=== PATIENT | female | born 1995 | race African-American/Black ===

== ENCOUNTER 2023-10-27 22:21 | Emergency (ER) | payer OTHER, SELFPAY ==
[2023-10-27 22:24] VITALS: BP 140/101
[2023-10-27 22:42] LABS: % Basophils 0.3 % (0-2); % Immature Granulocytes 0.3 % (0-0.5); % Lymphocytes 26.9 % (20.5-51.1); % Monocytes 5.6 % (1.7-9.3); % Neutrophils 63.9 % (42.2-75.2); Absolute Eosinophils 0.4 10^3/uL (0-0.7); Absolute Lymphocytes 3.6 10^3/uL (1.2-3.4); Absolute Monocytes 0.8 10^3/uL (0.1-0.6); Absolute Neutrophils 8.6 10^3/uL (1.4-6.5); Hematocrit 34.6 % (37.0-47.0); Mean Corp Hgb Conc. 34.7 g/dL (33.0-37.0); Mean Corpuscular Volume 80.8 fL (81.0-99.0); Mean Platelet Volume 11.1 fL (7.4-10.4); Nucleated Red Blood Cells % 0 %; Platelet Count 202 10^3/uL (130-400); Red Blood Cell Count 4.28 10^6/uL (4.20-5.40); Red Cell Dist. Width 13.3 % (11.5-14.5); White Blood Cell Count 13.4 10^3/uL (4.8-10.8)
[2023-10-27 22:45] LABS: Urine Albumin Trace (Neg - Trace); Urine Bilirubin Negative (Negative); Urine Character Clear (Clear); Urine Glucose Negative (Negative); Urine Ketone Trace (Negative); Urine Leukocyte 1+ (Negative); Urine Nitrite Negative (Negative); Urine Occult Blood 4+ (Negative); Urine Specific Gravity 1.015 (<1.030); Urine Urobilinogen Negative (Neg - 1+)
[2023-10-27 22:46] LABS: Urine Color Pink
[2023-10-27 22:52] LABS: Urine Red Blood Cell >100 /HPF (0-2); Urine Squamous Cell 0-2 /LPF (Few)
[2023-10-27 23:10] LABS: ALT (SGPT) 16 U/L (0-35); AST (SGOT) 27 U/L (14-36); Albumin 4.1 g/dl (3.5-5.0); Alkaline Phosphatase 83 U/L (38-126); Blood Urea Nitrogen 17 mg/dl (7-17); Calcium 8.9 mg/dl (8.4-10.2); Carbon Dioxide 24 mmol/L (22-30); Chloride 107 mmol/L (98-107); Glucose 112 mg/dl (70-99); Lipase 72 U/L (23-300); Potassium 4.1 mmol/L (3.5-5.1); Sodium 137 mmol/L (135-145); Total Bilirubin 0.3 mg/dl (0.2-1.3); Total Protein 7.1 g/dl (6.3-8.2); eGFR > 60.00
[2023-10-27 23:14] LABS: HCG, Serum Qualitative Screen Negative
--- NOTE | 2023-10-28 01:46 | ED.GENMED ---
History of Present Illness
<JUAN F Cook - Last Filed: 10/28/23 01:57>
General
Chief Complaint: Abdominal Symptoms
Source: patient
Exam Limitations: none
Time Seen by Provider: 10/28/23 01:29
Nursing documentation reviewed up to this point in time: agreed with
Travel History
Have you had any contact with someone who has COVID-19?: No
Do you have any symptoms of coronavirus? Fever > 100 degrees, chills, cough, shortness of breath, sore throat, loss of taste or smell, muscle aches, or headache?: No
History of Present Illness
History of Present Illness:
patient is a 28 y/o female presenting with abdominal pain x 1 day. Patient states the pain is located on her left lower ribs and its a sharp pain that radiates to her back. Patient admits to nausea with no vomiting that went away with eating.
Patient admits to chest pain that she describes as chest tightness that started 1 day ago. Patient admits that she was treated for a yeast infection with Diflucan that was ended 2 days ago. patient admits that she feels like she doesn't completely
empty her bladder when she urinates. Patient admits to bloating for multiple days that she associated with start of menses. Patient admits to heartburn that has been occurring for multiple days. Patient admits that she has been having right calf
pain x multiple days that she describes as tightness of her LE muscle. Patient denies V/D/C. fever, chills, GIBSON, blood in stool. Patient admits menses onset was 1 day ago. Patient denies alcohol or tobacco in the last 48 hrs.
Review of Systems
<JUAN F Cook - Last Filed: 10/28/23 01:57>
Review of Systems
All Other Systems: Not applicable
Constitutional: Reports no symptoms
EENT: Reports no symptoms
Respiratory: Reports trouble breathing
Cardiac: Reports chest pain
ABD/GI: Reports abdominal pain and nausea
: Reports dysuria and difficulty voiding
Musculoskeletal: Reports no symptoms
Skin: Reports no symptoms
Neurological: Reports no symptoms
Endocrine: Reports no symptoms
Hematologic/Lymphatic: Reports no symptoms
Psychiatric: Reports no symptoms
Phy Exam
<ST JoeyCO - Last Filed: 10/28/23 01:57>
General Physical Exam
General Presentation: well appearing and no apparent distress
General Skin: warm and dry
General Habitus: normal
General Mental: alert
General Hydration: appears well hydrated
ENT Exam
ENT Exam: EOMI, pharynx normal, neck supple and normocephalic
Eye Exam
Eye Exam: PERRL, cornea clear and conjunctiva normal
Cardiovascular Exam
Cardiovascular Exam: regular rate/rhythm, no edema, no murmur and normal peripheral pulses
Pulmonary Exam
Pulmonary Exam: lungs clear, no respiratory distress, no rales, no crackles, no rhonchi, no stridor, no wheezing and no cough
Gastrointestinal Exam
Gastrointestinal Exam: normal bowel sounds, non tender, soft, no organomegaly, no pulsatile mass and non distended
Neurological Exam
Neurological Exam: alert, oriented x3, no motor deficits and speech normal
Musculoskeletal Exam
Musculoskeletal Exam: full ROM and no edema
Skin Exam
Skin Exam: normal color, warm/dry, no rash and no petechia
Psychiatric Exam
Psychiatric Exam: normal mood/affect
Course
<ST JoeyCO - Last Filed: 10/28/23 01:57>
Orders/Labs/Results
Orders:
Orders
10/27/23 22:29
Electrocardiogram (*1) Urgent
Reason for Study: Abdominal Pain
EKG- Treatment ONCE
Test Result ONCE
10/27/23 22:36
Complete Blood Count/With Diff Urgent
Comprehensive Metabolic Panel Urgent
HCG, Serum Qualitative Screen Urgent
Lipase Urgent
Urinalysis Reflex To Culture Urgent
Date Specimen was Collected: 10/27/23
Time Specimen was Collected: 22:29
Urine Microscopic Reflex Cult Urgent
Urine Culture Urgent
MECHELLE Source: U
Specimen Description:
Date Specimen was Collected: 10/27/23
Time Specimen was Collected: 22:29
10/28/23 02:30
US Periph Venous LOWER Ext RT Urgent
Comment:
Reason For Exam: PAIN R post calf
10/28/23 03:29
D-Dimer Urgent
Comment: calf pain
10/28/23 04:41
CT Abd/pel Without Iv Or Oral Urgent
Comment:
Reason For Exam: acute Left flank pain
CT Chest Pe Study Urgent
Comment:
Reason For Exam: L sided CP, elevated d-dimer
Abnormal Lab Results
10/27/23 10/28/23
22:36 03:29
WBC 13.4 H 10^3/uL
(4.8-10.8)
Hct 34.6 L %
(37.0-47.0)
MCV 80.8 L fL
(81.0-99.0)
MPV 11.1 H fL
(7.4-10.4)
Absolute Neuts (auto) 8.6 H 10^3/uL
(1.4-6.5)
Absolute Lymphs (auto) 3.6 H 10^3/uL
(1.2-3.4)
Absolute Monos (auto) 0.8 H 10^3/uL
(0.1-0.6)
D-Dimer 0.62 H ug/mlFEU
(0.00-0.50)
Glucose 112 H mg/dl
(70-99)
Urine Ketones Trace A
(Negative)
Ur Occult Blood Reflex 4+ A
(Negative)
Leukocyte Esterase Rfl 1+ A
(Negative)
Urine RBC >100 A /HPF
(0-2)
10/27/23 22:36
10/27/23 22:36
Vital Signs
Initial and Last Documented VS:
Initial Vital Signs
Temp Pulse Resp BP Pulse Ox
97.9 F 91 20 140/101 97
10/27/23 22:24 10/27/23 22:24 10/27/23 22:24 10/27/23 22:24 10/27/23 22:24
Last Documented Vital Signs
Temp Pulse Resp BP Pulse Ox
97.9 F 91 20 102/67 97
10/27/23 22:24 10/27/23 22:24 10/27/23 22:24 10/28/23 05:00 10/28/23 05:00
<Rebeka Oh, DO - Last Filed: 10/28/23 06:18>
Orders/Labs/Results
Orders:
Orders
10/27/23 22:29
Electrocardiogram (*1) Urgent
Reason for Study: Abdominal Pain
EKG- Treatment ONCE
Test Result ONCE
10/27/23 22:36
Complete Blood Count/With Diff Urgent
Comprehensive Metabolic Panel Urgent
HCG, Serum Qualitative Screen Urgent
Lipase Urgent
Urinalysis Reflex To Culture Urgent
Date Specimen was Collected: 10/27/23
Time Specimen was Collected: 22:29
Urine Microscopic Reflex Cult Urgent
Urine Culture Urgent
MECHELLE Source: U
Specimen Description:
Date Specimen was Collected: 10/27/23
Time Specimen was Collected: 22:29
10/28/23 02:30
US Periph Venous LOWER Ext RT Urgent
Comment:
Reason For Exam: PAIN R post calf
10/28/23 03:29
D-Dimer Urgent
Comment: calf pain
10/28/23 04:41
CT Abd/pel Without Iv Or Oral Urgent
Comment:
Reason For Exam: acute Left flank pain
CT Chest Pe Study Urgent
Comment:
Reason For Exam: L sided CP, elevated d-dimer
Abnormal Lab Results
10/27/23 10/28/23
22:36 03:29
WBC 13.4 H 10^3/uL
(4.8-10.8)
Hct 34.6 L %
(37.0-47.0)
MCV 80.8 L fL
(81.0-99.0)
MPV 11.1 H fL
(7.4-10.4)
Absolute Neuts (auto) 8.6 H 10^3/uL
(1.4-6.5)
Absolute Lymphs (auto) 3.6 H 10^3/uL
(1.2-3.4)
Absolute Monos (auto) 0.8 H 10^3/uL
(0.1-0.6)
D-Dimer 0.62 H ug/mlFEU
(0.00-0.50)
Glucose 112 H mg/dl
(70-99)
Urine Ketones Trace A
(Negative)
Ur Occult Blood Reflex 4+ A
(Negative)
Leukocyte Esterase Rfl 1+ A
(Negative)
Urine RBC >100 A /HPF
(0-2)
10/27/23 22:36
10/27/23 22:36
Vital Signs
Initial and Last Documented VS:
Initial Vital Signs
Temp Pulse Resp BP Pulse Ox
97.9 F 91 20 140/101 97
10/27/23 22:24 10/27/23 22:24 10/27/23 22:24 10/27/23 22:24 10/27/23 22:24
Last Documented Vital Signs
Temp Pulse Resp BP Pulse Ox
97.9 F 91 20 102/67 97
10/27/23 22:24 10/27/23 22:24 10/27/23 22:24 10/28/23 05:00 10/28/23 05:00
<JUAN F Cook - Last Filed: 10/28/23 01:57>
MDM/Problems Addressed
Differential Diagnosis Includes:
PUD
pyelonephritis
PE
MDM/Problems Addressed:
abdominal pain
<JUAN F Cook - Last Filed: 10/28/23 01:57>
*Critical Care Note
Total Time (30-74mins, 75-104mins- exclusive of procedures): Not Applicable
<Rebeak Oh DO - Last Filed: 10/28/23 06:18>
*Radiology
Radiology exam reviewed: radiology read reviewed
*Pulse Oximetry
Patient hypoxic: no
*EKG
Interpreted by ED Provider?: Yes
Interpretation: normal
Comparison EKG: no changes
Rate: normal
Rhythm: sinus
[place]: normal axis
Interval: normal interval
QRS Pattern: normal QRS
Ischemia: no ischemia
ED Attending Note
<JUAN F Cook - Last Filed: 10/28/23 01:57>
-
Portions of this chart may have been created with voice recognition software.� Occasional wrong word or��sound alike� substitutions may have occurred due to the inherent limitations of voice recognition software.
<Rebeka Oh DO - Last Filed: 10/28/23 06:18>
ED Attending Note
Patient seen and examined by attending physician: Yes
I performed the substantive portion of visit, reviewed & personally made and approve the management plan that is documented in note by myself or SRINATH.: Yes
I performed a history and physical exam of patient and discussed management with resident, I reviewed resident's note and agree with documented findings and plan of care.: Yes
ED Attending Note:
This is a 28-year-old female who has no significant past medical history who complains of left upper quadrant to left flank pain that began yesterday, somewhat constant with intermittent sharp pain. Left upper quadrant pain radiates to her left
chest associated with some heartburn, nausea but no vomiting. She has had a cough over the past several days, intermittent and dry but no fever, no nasal congestion, no sore throat.
Heartburn and substernal chest pain temporarily improves after eating and drinking. She is also noted several day history of right posterior calf pain and has had similar right posterior calf pain off and on with previous ED visit May 2023
with similar complaints of left-sided chest pain, right posterior calf pain. At that time she had just finished a course of prednisone and was noted to have elevated white blood cell count, normal D-dimer.
CT of the chest/PE study was unremarkable.
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
She currently has her normal menstrual period. Denies risk of .
Had been maintained on Depo-Provera but last injection was February 2023.
More recently she was treated for a vaginal yeast infection with 3 doses of Diflucan taken once every 72 hours for 3 doses. This was prescribed by her PCP. Yeast infection symptoms have resolved but with initiation of Diflucan 2 days ago she had
very mild UTI symptoms with a sense of not emptying her bladder fully but no significant dysuria, no definitive hematuria but currently has her menstrual period. No urinary frequency.
No recent travel.
Lifelong non-smoker.
No personal nor family history of thromboembolism.
GENERAL: This is a 28-year-old female appears her stated age, bright and alert, pleasant, appears in no acute distress. is accompanying.
EYE: anicteric
NECK: Supple, nontender, no meningismus, no significant adenopathy.
ENT: oral mucosa is moist. No rhinorrhea.
CARDIAC: Regular rate and rhythm. no murmur. No rub.
LUNGS: Clear breath sounds bilaterally, no acute respiratory distress, no wheezes/rales/rhonchi. Mild tenderness left anterior to lateral distal costal margin. Palpation seems to exactly reproduce patient's pain complaint. No crepitus nor
palpable bony abnormality.
ABDOMEN: Rotund, soft, nondistended, mild tenderness of patient left lateral flank and left posterior flank with mild left CVA tenderness with percussion, no r/g, normoactive BS. No rash.
NEUROLOGICAL: Alert and oriented x3, no focal neuro deficits. Gait is aviles and steady.
SKIN: Warm and dry, normal color, skin intact. No rash.
MUSCULOSKELETAL: No C/C/E. peripheral pulses are full and equal b/l. Mild tenderness right posterior calf without palpable cords nor erythema, no soft tissue swelling nor edema.
PSYCH: Normal and appropriate interaction.
Concern for musculoskeletal flank pain, renal colic with left ureteric stone, pyelonephritis, GERD, pleurisy, pneumonia. PE is less likely, no risk factors for thromboembolism however patient has been complaining of some right calf pain thus will
check a D-dimer as well as ultrasound right lower extremity.
EKG is normal, unchanged from previous. Nothing to suggest pericarditis nor ACS.
Labs thus far reveal mildly elevated white blood cell count of 13.4, improved from previous in May at 20.2.
Chemistries are unremarkable.
Urinalysis shows plus for blood with microscopic showing greater than 100 RBCs. WBCs obscured by RBCs but no evidence of bacteria on microscopic. Hematuria could certainly be contaminant from from menses but must also consider ureteral stone.
10/28/2023 0608 AM
Ultrasound right leg is negative for DVT, no evidence of phlebitis no Levine's cyst.
D-dimer mildly positive thus CT of the chest/PE study obtained which is negative for PE, bibasilar atelectasis without consolidation.
CT of the abdomen pelvis is unremarkable as well. Status postcholecystectomy. No colitis, no bowel obstruction, no free air, no obstructive uropathy.
I suspect right upper quadrant to right flank pain is musculoskeletal in nature. Patient reports allergy to aspirin causing a rash and thus she avoids NSAIDs. Recommend Tylenol as needed for pain. She can also trial [id number] topical NSAID
versus topical lidocaine patch. Will add PPI for GI protection, potential GERD.
Recommend other supportive measures, warm compresses, rest, gentle stretching.
Prompt follow-up with PCP for recheck.
Discharge Plan
Departure
Patient Disposition: Home (Routine Discharge)
Date of Disposition: 10/28/23
Time of Disposition: 06:10
Patient with high blood pressure during this ER visit?: No
Condition: Good
Discharge Problem:
musculoskeletal left flank pain, Gastroesophageal reflux disease
Instructions: Flank Pain (DC), Acid reflux and gastroesophageal reflux disease in adults
Prescriptions:
New
pantoprazole [Protonix] 40 mg tablet,delayed release (DR/EC)
40 mg PO DAILY Qty: 30 0RF
Discontinued
amoxicillin-pot clavulanate 875-125 mg tablet
1 tab PO BID 10 Days Qty: 20 0RF
Referrals:
UNKNOWN - PT DOES,NOT KNOW [Unknown Provider] - Call in 1-3 days for appt
Interventions
Interventions:
*Risk Screen - Suicide Last Done: 10/28/23 03:45
*General Assessment Last Done: 10/28/23 03:45
*Neglect/Abuse Screening Last Done: 10/28/23 03:45
ED- Fall Risk Assessment Last Done: 10/28/23 03:45
*ED COVID-19 Vaccine History Last Done: 10/27/23 22:26
JW-Kupfrw-Ghjobkwehu Assessment Last Done: 10/28/23 03:45
Discharge Date and Time
Print Language: JAPANESE
[2023-10-28 03:44] VITALS: BP 130/94
[2023-10-28 03:57] LABS: D-Dimer 0.62 ug/mlFEU (0.00-0.50)
[2023-10-28 04:00] VITALS: BP 112/78
[2023-10-28 05:00] VITALS: BP 102/67
[2023-10-28 06:00] VITALS: BP 122/79
== END 2023-10-28 06:38 | disposition home or self-care (01) ==
LOC: EMR 22:21
PROVIDERS: Emergency Medicine; EMERGENCY PHYSICIAN Emergency Medicine; FAMILY PHYSICIAN Nurse Practitioner
DX: R10.9 Unspecified abdominal pain (principal); K21.9 Gastro-esophageal reflux disease without esophagitis; M79.661 Pain in right lower leg; Z88.6 Allergy status to analgesic agent
CPT/HCPCS: 99285; 71275; 74176; 80053; 81003; 81015; 83690; 84703; 85025; 85379; 87086; 93005; 93971; Q9967

== ENCOUNTER → 2023-12-19 08:21 | Outpatient (REF) | payer OTHER, SELFPAY | LOC: OHS 08:21 | PROVIDERS: ATTENDING PHYSICIAN Nurse Practitioner Family | DX: Z13.9 Encounter for screening, unspecified (principal) | CPT/HCPCS: 71046 ==

== ENCOUNTER 2024-04-27 10:45 | Emergency (ER) | payer OTHER, SELFPAY ==
[2024-04-27 10:57] VITALS: BP 134/92
[2024-04-27 11:38] LABS: % Basophils 0.2 % (0-2); % Eosinophils 2.3 % (0-6); % Immature Granulocytes 0.2 % (0-0.5); % Lymphocytes 26.8 % (20.5-51.1); % Monocytes 6.2 % (1.7-9.3); % Neutrophils 64.3 % (42.2-75.2); Absolute Eosinophils 0.2 10^3/uL (0-0.7); Absolute Lymphocytes 2.6 10^3/uL (1.2-3.4); Absolute Monocytes 0.6 10^3/uL (0.1-0.6); Absolute Neutrophils 6.1 10^3/uL (1.4-6.5); Hematocrit 34.2 % (37.0-47.0); Hemoglobin 11.6 g/dL (12.0-16.0); Mean Corp Hgb Conc. 33.9 g/dL (33.0-37.0); Mean Corpuscular Hgb 27.8 pg (27.0-31.0); Mean Platelet Volume 11.3 fL (7.4-10.4); Nucleated Red Blood Cells % 0 %; Platelet Count 198 10^3/uL (130-400); Red Blood Cell Count 4.17 10^6/uL (4.20-5.40); Red Cell Dist. Width 14.1 % (11.5-14.5); White Blood Cell Count 9.5 10^3/uL (4.8-10.8)
[2024-04-27 11:41] VITALS: BMI 42.9
--- NOTE | 2024-04-27 11:41 | ED.GENMED ---
History of Present Illness
General
Chief Complaint: Heart Rate Problem
Time Seen by Provider: 04/27/24 11:23
History of Present Illness
History of Present Illness:
Patient is a 28-year-old woman with no past medical history presenting to the emergency department with palpitations. 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
lightheadedness and chest pain. That resolved. She is currently back to feeling normal. Denies any nausea vomiting or diaphoresis. She has had the symptoms a few years ago she presented to another hospital. She never had a Holter monitor. She
denies any chest pain. No exertional chest pain. No family history of early cardiac disease or sudden cardiac. Patient denies any fevers chills. No URI symptoms. No leg swelling hemoptysis recent travel malignancy or OCP use. At this time
patient has no complaints.
Phy Exam
Physical Exam
Physical Exam:
GENERAL: in no acute distress
HEENT: normocephalic, extraocular movements intact, moist oral mucosa
NECK: normal inspection
RESPIRATORY: no respiratory distress, clear to auscultation bilaterally
CARDIOVASCULAR: regular rate and rhythm
ABDOMEN/: soft, non-distended, non-tender to palpation, no rebound or guarding
EXTREMITIES: non-tender, no edema/swelling
NEUROLOGIC: awake and alert, moves all extremities
SKIN: warm
Course
Orders/Labs/Results
Orders:
Orders
04/27/24 10:46
Electrocardiogram (*1) Urgent
Reason for Study: Palpitations
EKG- Treatment ONCE
04/27/24 11:22
Electrocardiogram (*1) Urgent
Reason for Study: Chest Pain
Cardiac Monitoring- Treatment ONCE
EKG- Treatment ONCE
IV Insert/Care/Rem.- Treatment PRN
O2 Therapy [RESP] Urgent
Titrate/Wean O2 to maintain O2 sat greater than (%): 90
Special Instructions: Maintain sats >/=90%
Pulse Ox/spot Check [RESP] Urgent
Quantity: 1
Special Instructions: ON ROOM AIR
04/27/24 11:23
Test Result ONCE
04/27/24 11:28
Comprehensive Metabolic Panel Urgent
HCG, Serum Qualitative Screen Urgent
Magnesium Urgent
Thyroid profile [TSH Reflex To Free T4] Urgent
04/27/24 11:29
Complete Blood Count/With Diff Urgent
04/27/24 12:08
CR Chest - 2 Views Urgent
Comment:
Reason For Exam: palpitation
Abnormal Lab Results
04/27/24
11:29
RBC 4.17 L 10^6/uL
(4.20-5.40)
Hgb 11.6 L g/dL
(12.0-16.0)
Hct 34.2 L %
(37.0-47.0)
MPV 11.3 H fL
(7.4-10.4)
04/27/24 11:29
04/27/24 11:28
Vital Signs
Initial and Last Documented VS:
Initial Vital Signs
Temp Pulse Resp BP Pulse Ox
98.1 F 73 18 134/92 100
04/27/24 10:57 04/27/24 10:57 04/27/24 10:57 04/27/24 10:57 04/27/24 10:57
Last Documented Vital Signs
Temp Pulse Resp BP Pulse Ox
98.1 F 74 20 134/92 99
04/27/24 10:57 04/27/24 12:00 04/27/24 12:00 04/27/24 10:57 04/27/24 12:00
MDM/Problems Addressed
Differential Diagnosis Includes:
Patient is a 28-year-old woman presenting to the emergency department with palpitations that have now resolved. Vital signs are unremarkable and exam here is nonfocal. Palpitations could be related to metabolic derangement versus arrhythmia versus
. History and exam not consistent with ACS. Will check blood work including magnesium and thyroid cascade. If everything is normal we will discharge with outpatient follow-up.
*Critical Care Note
Total Time (30-74mins, 75-104mins- exclusive of procedures): Not Applicable
Update Note
Update Note:
On reevaluation patient resting comfortably. She remains to be asymptomatic. Blood work reassuring. Will discharge this time with PCP follow-up for Holter monitor.
ED Attending Note
-
Portions of this chart may have been created with voice recognition software.� Occasional wrong word or��sound alike� substitutions may have occurred due to the inherent limitations of voice recognition software.
Discharge Plan
Departure
Patient Disposition: Home (Routine Discharge)
Date of Disposition: 04/27/24
Time of Disposition: 13:01
Patient with high blood pressure during this ER visit?: No
Discharge Problem:
Palpitation
Instructions: Palpitations (DC)
Prescriptions:
No Action
pantoprazole [Protonix] 40 mg tablet,delayed release (DR/EC)
40 mg PO DAILY Qty: 30 0RF
Referrals:
Jennifer Hernández CRNP [Family Provider] -
Activity Restrictions/Additional Instructions:
You were seen in the Emergency Department today for palpitations. While you were here we performed blood work, which was reassuring.
We would like for you to follow up with your primary care physician for further evaluation. If you experience fever, worsening of your symptoms, or develop any other new or concerning symptoms, please return to the Emergency Department immediately.
Please see the attached sheet for additional information.
Interventions
Interventions:
*Risk Screen - Suicide Last Done: 04/27/24 11:41
*General Assessment Last Done: 04/27/24 11:41
*Neglect/Abuse Screening Last Done: 04/27/24 11:41
ED- Fall Risk Assessment Last Done: 04/27/24 11:41
*ED COVID-19 Vaccine History Last Done: 04/27/24 11:41
ED- Cardiac Assessment Last Done: 04/27/24 11:41
ED- Pulmonary Assessment Last Done: 04/27/24 11:41
Discharge Date and Time
Print Language: VENEZUELAN
[2024-04-27 11:47] LABS: HCG, Serum Qualitative Screen Negative
[2024-04-27 11:59] LABS: ALT (SGPT) 19 U/L (0-35); AST (SGOT) 18 U/L (14-36); Albumin 4.3 g/dl (3.5-5.0); Alkaline Phosphatase 68 U/L (38-126); Blood Urea Nitrogen 15 mg/dl (7-17); Carbon Dioxide 25 mmol/L (22-30); Chloride 104 mmol/L (98-107); Estimated Creatinine Clearance > 125 ml/min; Glucose 95 mg/dl (70-99); Magnesium 1.8 mg/dl (1.6-2.3); Sodium 140 mmol/L (135-145); Total Bilirubin 0.4 mg/dl (0.2-1.3); Total Protein 7.2 g/dl (6.3-8.2); eGFR > 60.00
[2024-04-27 12:29] LABS: TSH Reflex To Free T4 0.57 uIU/ml (0.47-4.68)
== END 2024-04-27 13:20 | disposition home or self-care (01) ==
LOC: EMR 10:45
PROVIDERS: EMERGENCY PHYSICIAN Student in an Organized Health Care Education/Training Program; FAMILY PHYSICIAN Nurse Practitioner
DX: R00.2 Palpitations (principal); R42 Dizziness and giddiness; R07.9 Chest pain, unspecified; Y93.89 Activity, other specified; Y92.238 Other place in hospital as the place of occurrence of the external cause; Y99.0 Civilian activity done for income or pay; Z88.5 Allergy status to narcotic agent; Z88.8 Allergy status to other drugs, medicaments and biological substances; Z88.6 Allergy status to analgesic agent; Z91.040 Latex allergy status
CPT/HCPCS: 99284; 94760; 71046; 80053; 83735; 84443; 84703; 85025; 93005

== ENCOUNTER 2024-05-25 23:42 | Emergency (ER) | payer OTHER, SELFPAY ==
[2024-05-25 23:47] VITALS: BP 159/103
--- NOTE | 2024-05-26 01:46 | ED.GENMED ---
History of Present Illness
<JUAN F De La O - Last Filed: 05/26/24 05:56>
General
Chief Complaint: Extremity Pain (non-traumatic)
Source: patient
Time Seen by Provider: 05/26/24 01:46
Nursing documentation reviewed up to this point in time: agreed with
History of Present Illness
History of Present Illness:
A 28-year-old female with a past medical history of asthma, IBS, presents to the emergency department for right lower extremity calf pain. She states that the pain started this evening and woke her from sleep around 9 PM. She states the pain
initially began in the right lower calf, but slowly began radiating up the lateral aspect of her leg into her right lower back. She incidentally admits to headache which is mild in nature which began an unknown duration of time prior to the leg
pain. She denies chest pain, palpitations, shortness of breath, nausea, vomiting.
She denies any prior episodes . She denies any long distance travel. She is a non-smoker and only drinks socially. She denies any OCP use.
Past History
<JUAN F De La O - Last Filed: 05/26/24 05:56>
Past History
ED Past Medical History: Asthma
Social History
Tobacco: Non-smoker
Alcohol: Occasional
Drug: None
Personal:
Living: with family
Employment: Employed
Review of Systems
<JUAN F De La O - Last Filed: 05/26/24 05:56>
Review of Systems
Allergies reviewed?: Yes
Phy Exam
<JUAN F De La O - Last Filed: 05/26/24 05:56>
General Physical Exam
General Presentation: well appearing and no apparent distress
General age: appears stated age
General Skin: warm and dry
General Habitus: normal and obese
General Mental: alert
Cardiovascular Exam
Cardiovascular Exam: regular rate/rhythm, no edema, no gallop, no murmur and normal peripheral pulses
Pulmonary Exam
Pulmonary Exam: lungs clear, no respiratory distress, no rales, no crackles, no rhonchi, no wheezing and no cough
Neurological Exam
Neurological Exam: alert and oriented x3
Musculoskeletal Exam
Musculoskeletal Exam: full ROM, neuro vasc intact and other (Right posterior calf mild tenderness to palpation. Right posterior thigh is non-TTP. Right Achilles tendon is non-TTP. Right lower calf diameter of 41 cm. Left lower calf diameter of
43 cm. Sensation to light touch intact bilaterally.)
Skin Exam
Skin Exam: normal color, warm/dry and no rash
Psychiatric Exam
Psychiatric Exam: normal mood/affect
Scores
<Dudley Knox, [facility] - Last Filed: 05/26/24 05:56>
PE Low Risk Score
Hemodynamically unstable?: No
Thrombolysis or embolectomy needed?: No
Active bleeding or high risk for bleeding?: No
>24hrs on supplemental O2 required to maintain SaO2 >90%?: No
PE diagnosed while on anticoagulation?: No
Severe pain needing IV medication required for >24 hours?: No
Medical or social reason for admission >24 hours?: No
Creatinine clearance < 30 mL/min by Cockcroft-Gault?: No
Severe liver impairment?: No
?: No
Documented hx of heparin-induced thrombocytopenia (HIT)?: No
High risk features on CT (or pulmonary angiogram/MRA)(confirm with echo if features seen)?: No
High risk features on echo, if performed?: No
High risk features on laboratory testing?: No
High risk features on lower extremity US, if performed?: No
High risk features on ECG (confirm with echo if features seen)?: No
Recommendations: Patient is considered low risk
PE Wells Score
Symptoms of DVT: Yes
No alternative diagnosis better explains the illness: No
Tachycardia with pulse > 100: No
Immobilization (>=3 days) or surgery within previous 4 weeks: No
Prior history of DVT or pulmonary embolism: No
Presence of hemoptysis: No
Presence of malignancy: No
Pulmonary Embolism Risk Score: 0
Probability of PE: Pt is low risk
<Eliseo Beckett DO - Last Filed: 05/26/24 03:40>
PE Low Risk Score
Recommendations: Patient is considered low risk
PE Wells Score
Pulmonary Embolism Risk Score: 0
Probability of PE: Pt is low risk
Course
<JUAN F De La O - Last Filed: 05/26/24 05:56>
Orders/Labs/Results
Orders:
Orders
05/26/24 02:10
US Legs, Bilateral [US Periph Venous LOWER Ext Javy] Urgent
Comment:
Reason For Exam: R calf pain radiating up lateral thigh
05/26/24 03:29
Acetaminophen [Tylenol] 1,000 mg PO NOW STA
Cyclobenzaprine HCl [Flexeril] 10 mg PO NOW STA
Vital Signs
Initial and Last Documented VS:
Initial Vital Signs
Temp Pulse Resp BP Pulse Ox
98.2 F 96 20 159/103 98
05/25/24 23:47 05/25/24 23:47 05/25/24 23:47 05/25/24 23:47 05/25/24 23:47
Last Documented Vital Signs
Temp Pulse Resp BP Pulse Ox
98.2 F 83 16 120/77 97
05/25/24 23:47 05/26/24 03:22 05/26/24 03:22 05/26/24 03:22 05/26/24 03:22
<Eliseo Beckett DO - Last Filed: 05/26/24 03:40>
Orders/Labs/Results
Orders:
Orders
05/26/24 02:10
US Legs, Bilateral [US Periph Venous LOWER Ext Javy] Urgent
Comment:
Reason For Exam: R calf pain radiating up lateral thigh
05/26/24 03:29
Acetaminophen [Tylenol] 1,000 mg PO NOW STA
Cyclobenzaprine HCl [Flexeril] 10 mg PO NOW STA
Vital Signs
Initial and Last Documented VS:
Initial Vital Signs
Temp Pulse Resp BP Pulse Ox
98.2 F 96 20 159/103 98
05/25/24 23:47 05/25/24 23:47 05/25/24 23:47 05/25/24 23:47 05/25/24 23:47
Last Documented Vital Signs
Temp Pulse Resp BP Pulse Ox
98.2 F 83 16 120/77 97
05/25/24 23:47 05/26/24 03:22 05/26/24 03:22 05/26/24 03:22 05/26/24 03:22
<JUAN F De La O - Last Filed: 05/26/24 05:56>
MDM/Problems Addressed
Differential Diagnosis Includes:
Deep vein thrombosis, sciatica, arterial thromboembolism
<JUAN F De La O - Last Filed: 05/26/24 05:56>
*Critical Care Note
Total Time (30-74mins, 75-104mins- exclusive of procedures): Not Applicable
<JUAN F De La O - Last Filed: 05/26/24 05:56>
Update Note
Update Note:
05/26/2024 0309 AM: [facility]: Lower extremity ultrasound revealed no deep vein thrombosis. Will notify patient.
ED Attending Note
<JUAN F De La O - Last Filed: 05/26/24 05:56>
-
Portions of this chart may have been created with voice recognition software.� Occasional wrong word or��sound alike� substitutions may have occurred due to the inherent limitations of voice recognition software.
Discharge Plan
Departure
Patient Disposition: Home (Routine Discharge)
Date of Disposition: 05/26/24
Time of Disposition: 03:31
Patient with high blood pressure during this ER visit?: Yes
Condition: Good
Discharge Problem:
Sciatic leg pain
Instructions: Sciatica ED, BLOOD PRESSURE
Prescriptions:
New
cyclobenzaprine 10 mg tablet
10 mg PO BID PRN (Reason: Muscle spasm) Qty: 14 0RF
No Action
pantoprazole [Protonix] 40 mg tablet,delayed release (DR/EC)
40 mg PO DAILY Qty: 30 0RF
Referrals:
Johnie Ware MD [Family Provider] - As needed
Stand Alone Forms: Return to Work
Activity Restrictions/Additional Instructions:
Your prescriptions were sent electronically to the pharmacy that you specified.
It was a pleasure meeting you and taking part in your care. We hope for your continued healing and wellness.
Please read discharge instructions in their entirety. However, they are for general education and may not describe your exact diagnosis at discharge. Information on your ER visit and medical conditions were discussed with you along with appropriate
follow up information...
If indicated, please take your medications as instructed and indicated on discharge paperwork.
Please schedule a follow up appointment as directed. Call to schedule an appointment
Please return to the emergency department with ANY change in, persisting, or worsening of symptoms. If any of your symptoms do not improve, or persist, or become more severe within 6-12 hours, please return to the emergency department for further
care.
Please return to the emergency department if you develop a headache, neck pain/stiffness, fever greater than 100.4F, chest pain, shortness of breath, persistent nausea, vomiting, slurred speech, difficulty walking, numbness/tingling, weakness, signs
of infection or any other symptoms that are worrisome to you.
If you have any questions or concerns please do not hesitate to call the Hospital at or E-mail me directly at [email or web address]
Interventions
Interventions:
*Risk Screen - Suicide Last Done: 05/25/24 23:51
*General Assessment Last Done: 05/25/24 23:51
*Neglect/Abuse Screening Last Done: 05/26/24 04:02
ED- Fall Risk Assessment Last Done: 05/26/24 04:02
*ED COVID-19 Vaccine History Last Done: 05/25/24 23:51
*Nursing Disposition Last Done: 05/26/24 04:02
ED-Skin Assessment Last Done: 05/26/24 03:15
ED-Peripheral Vascular Assessment Last Done: 05/26/24 03:14
ED-Musculoskeletal Assessment Last Done: 05/26/24 01:42
Discharge Date and Time
Discharge Date/Time: 05/26/24 04:00
Print Language: MALAY
[2024-05-26 02:24] VITALS: BP 125/84
[2024-05-26 03:22] VITALS: BP 120/77
[2024-05-26] MEDS: FLEXERIL 10 MG PO (03:59)
[2024-05-26] MEDS: TYLENOL 1000 MG PO (03:59)
== END 2024-05-26 04:00 | disposition home or self-care (01) ==
LOC: EMR 23:42
PROVIDERS: EMERGENCY PHYSICIAN Student in an Organized Health Care Education/Training Program; FAMILY PHYSICIAN Family Medicine
DX: M54.30 Sciatica, unspecified side (principal); J45.909 Unspecified asthma, uncomplicated; K58.9 Irritable bowel syndrome, unspecified; R03.0 Elevated blood-pressure reading, without diagnosis of hypertension
CPT/HCPCS: 99284; 93970

== ENCOUNTER 2024-09-10 15:55 | Emergency (ER) | payer OTHER, SELFPAY ==
[2024-09-10 16:03] VITALS: BP 155/99
[2024-09-10 18:55] VITALS: BP 129/89
[2024-09-10 18:58] VITALS: BMI 42.6
[2024-09-10 20:00] VITALS: BP 130/92
--- NOTE | 2024-09-10 20:29 | ED.GENMED ---
History of Present Illness
General
Chief Complaint: Musculo-Skeletal Complaint
Source: patient
Exam Limitations: none
Time Seen by Provider: 09/10/24 18:37
Nursing documentation reviewed up to this point in time: agreed with
History of Present Illness
History of Present Illness:
28 yr old female presents to the ER complaining of right shoulder pain. She reports on September 17 she fell and injured her right shoulder. She had x-rays urgent care which were negative. She did see orthopedics this week and she has an MRI
ordered on Friday. She presents to the ER because of continued pain. She is allergic to aspirin and ibuprofen drugs and only can take Tylenol and complains of pain. She does have swelling. She does report she has good range of motion but after
she moves her arm she has even more discomfort.
Past History
Past History
ED Past Medical History: Asthma
Social History
Tobacco: Non-smoker
Alcohol: Occasional
Drug: None
Personal:
Living: with family
Employment: Employed
Review of Systems
Review of Systems
Allergies reviewed?: Yes
All Other Systems: ROS reviewed and negative except as documented in HPI and ROS
Constitutional: Reports no symptoms
Musculoskeletal: Reports other (right shoulder pain )
Skin: Reports no symptoms
Neurological: Reports no symptoms
Psychiatric: Reports no symptoms
Phy Exam
General Physical Exam
General Presentation: no apparent distress
General age: appears stated age
General Skin: warm and dry
General Habitus: normal
General Mental: alert
General Hydration: appears well hydrated
Neurological Exam
Neurological Exam: alert
Course
Orders/Labs/Results
Orders:
Orders
09/10/24 16:06
Shoulder, Right, Trauma [CR Shoulder, Trauma - Right] Urgent
Comment:
Reason For Exam: fall 1 month ago, pain
09/10/24 20:29
Acetaminophen [Tylenol] 1,000 mg PO NOW STA
Lidocaine [Lidocaine 4% Patch] 1 patch TOPICAL NOW STA
Apply Lidocaine patch(s) to:: right shoulder
diazePAM [Valium Injection] 5 mg IM NOW STA
09/10/24 20:57
Venous Doppler Upr Ext Right [US Periph Venous UPPER Ext RT] Urgent
Comment:
Reason For Exam: swelling /pain injury one month ago
Vital Signs
Initial and Last Documented VS:
Initial Vital Signs
Temp Pulse Resp BP Pulse Ox
97.8 F 91 16 155/99 97
09/10/24 16:03 09/10/24 16:03 09/10/24 16:03 09/10/24 16:03 09/10/24 16:03
Last Documented Vital Signs
Temp Pulse Resp BP Pulse Ox
97.8 F 91 16 130/92 100
09/10/24 16:03 09/10/24 16:03 09/10/24 16:03 09/10/24 20:00 09/10/24 20:54
MDM/Problems Addressed
MDM/Problems Addressed:
As documented patient is a 28-year-old female who fell onto her right shoulder about a month ago saw orthopedics had negative x-rays however has had persistent pain and has an MRI scheduled this Friday she came in because of pain. On exam she has
mild swelling however ultrasound negative no acute findings on x-ray. She has strong pulses and normal distal sensation no fevers or redness no evidence infection. .
She is on muscle relaxer cyclobenzaprine at home ( not working). Patient did not want to try narcotic and she is allergic to aspirin/NSAIDs. Did give patient Valium along with the lidocaine patch and Tylenol and she is feeling much better we will
have patient stop cyclobenzaprine and will start Valium along with lidocaine patch. She has to follow-up for her MRI on Friday and follow-up with orthopedics
*Radiology
Radiology exam reviewed: radiology read reviewed
*Pulse Oximetry
Patient hypoxic: no
*Critical Care Note
Total Time (30-74mins, 75-104mins- exclusive of procedures): Not Applicable
ED Attending Note
-
Portions of this chart may have been created with voice recognition software.� Occasional wrong word or��sound alike� substitutions may have occurred due to the inherent limitations of voice recognition software.
Discharge Plan
Departure
Patient Disposition: Home (Routine Discharge)
Date of Disposition: 09/10/24
Time of Disposition: 22:50
Patient with high blood pressure during this ER visit?: Yes
Condition: Fair
Covid-19: Not Applicable
Discharge Problem:
Right shoulder pain
Instructions: Muscle and Bone Pain (DC), Shoulder pain
Prescriptions:
New
diazepam [Valium] 5 mg tablet
5 mg PO TID PRN (Reason: muscle spasm) Qty: 10 0RF
lidocaine 5 % adhesive patch,medicated
1 patch topical DAILY Qty: 15 0RF
Rx Instructions:
remove after 12 hrs
No Action
cyclobenzaprine 10 mg tablet
10 mg PO BID PRN (Reason: Muscle spasm) Qty: 14 0RF
Referrals:
Jennifer Hernández CRNP [Family Provider] -
Activity Restrictions/Additional Instructions:
As discussed stop cyclobenzaprine and start Valium 5 mg every 8 hours as needed for muscle spasm and pain in right shoulder. You may take Tylenol as previously directed along with lidocaine patch. Follow-up with orthopedics as scheduled and your
MRI this Friday. Return if any worsening of symptoms.
Interventions
Interventions:
*Risk Screen - Suicide Last Done: 09/10/24 16:03
*General Assessment Last Done: 09/10/24 16:03
*Neglect/Abuse Screening Last Done: 09/10/24 16:03
ED- Fall Risk Assessment Last Done: 09/10/24 18:58
*ED COVID-19 Vaccine History Last Done: 09/10/24 18:58
ED-Musculoskeletal Assessment Last Done: 09/10/24 18:58
Discharge Date and Time
Print Language: CAPE VERDEAN
[2024-09-10] MEDS: VALIUM INJECTION 5 MG IM (20:43)
[2024-09-10] MEDS: TYLENOL 1000 MG PO (20:44)
[2024-09-10] MEDS: LIDOCAINE 4% PATCH 1 PATCH TOPICAL (20:45)
[2024-09-10 21:00] VITALS: BP 128/97
[2024-09-10 22:00] VITALS: BP 130/89
== END 2024-09-10 23:17 | disposition home or self-care (01) ==
LOC: EMR 15:55
PROVIDERS: EMERGENCY PHYSICIAN Emergency Medicine; FAMILY PHYSICIAN Nurse Practitioner
DX: M25.511 Pain in right shoulder (principal); J45.909 Unspecified asthma, uncomplicated; Z88.6 Allergy status to analgesic agent
CPT/HCPCS: 99284; 96372; 73030; 93971

== ENCOUNTER 2024-12-01 11:44 | Emergency (ER) | payer OTHER, SELFPAY ==
[2024-12-01 11:48] VITALS: BP 139/100
[2024-12-01 12:53] LABS: COVID-19 Antigen Negative (Negative)
--- NOTE | 2024-12-01 13:06 | ED.GENMED ---
History of Present Illness
General
Chief Complaint: Headache
Source: patient
Time Seen by Provider: 12/01/24 12:35
History of Present Illness
History of Present Illness:
29-year-old female presents to the emergency room complaining of headache, dizziness, cough. Patient began feeling unwell 3 to 4 days ago with a cough. She went to an urgent care where she was prescribed cough medicine. She had a chest x-ray
which showed no pneumonia. Headache began as a mild headache when her symptoms started but headache has increased in severity. She describes as a pressure behind her right eye. She felt dizzy today prompting her visit to the emergency room. She
also had an episode of nausea though she did not vomit. She denies any focal weakness numbness or tingling.
Past History
Past History
ED Past Medical History: Asthma
Social History
Tobacco: Non-smoker
Alcohol: Occasional
Drug: None
Personal:
Living: with family
Employment: Employed
Phy Exam
Physical Exam
Physical Exam:
General: Awake, Alert, Oriented X3. No acute distress.
Vitals: unremarkable
Head: Atraumatic
Eyes: Pupils equal, EOMI
Throat: Airway intact, no exudates
Neck: Trachea midline, no nuchal rigidity
Lungs: Clear and equal b/l
Heart: Regular rate, no murmurs
Abd: Soft, Nontender, No pulsatile mass
Neuro: Cranial nerves intact, muscle strength equal bilaterally, cerebellar exam normal
Skin: Warm, dry, no rash
Extremities: pulses equal b/l, no edema
Course
Orders/Labs/Results
Orders:
Orders
12/01/24 11:44
EKG [Electrocardiogram (*1)] Urgent
Reason for Study: Chest Pain
EKG- Treatment ONCE
12/01/24 12:22
COVID-19 Antigen Urgent
Source: Nasal Swab
Influenza A+B Rapid Molecular Urgent
MECHELLE Source: Nasal Swab
Specimen Description:
12/01/24 13:01
Diphenhydramine [Benadryl] 25 mg IV NOW STA
Metoclopramide [Reglan] 10 mg IV NOW STA
12/01/24 13:04
CT Head W/o Iv Contrast Urgent
Comment:
Reason For Exam: headache, dizziness
Vital Signs
Initial and Last Documented VS:
Initial Vital Signs
Temp Pulse Resp BP Pulse Ox
98.1 F 85 18 139/100 99
12/01/24 11:48 12/01/24 11:48 12/01/24 11:48 12/01/24 11:48 12/01/24 11:48
Last Documented Vital Signs
Temp Pulse Resp BP Pulse Ox
98.1 F 85 18 139/100 99
12/01/24 11:48 12/01/24 11:48 12/01/24 11:48 12/01/24 11:48 12/01/24 11:48
MDM/Problems Addressed
Differential Diagnosis Includes:
Viral syndrome, tension headache, migraine headache, mass, bleed
MDM/Problems Addressed:
Patient presents with headache. Sounds like she has viral type symptoms. Imaging ordered because the patient states she was having significant dizziness and has severe pressure in a focal area behind her left eye. Ultimately CT was unremarkable.
She feels better after treatment here. Patient stable for discharge home.
*Radiology
Radiology exam reviewed: radiology read reviewed
*Pulse Oximetry
Patient hypoxic: no
*EKG
Interpretation: abnormal
Heart Rate: 80
Rate: normal
Rhythm: sinus
[place]: normal axis
Interval: normal interval
QRS Pattern: normal QRS
Ischemia: no ischemia
*Critical Care Note
Total Time (30-74mins, 75-104mins- exclusive of procedures): Not Applicable
ED Attending Note
-
Portions of this chart may have been created with voice recognition software.� Occasional wrong word or��sound alike� substitutions may have occurred due to the inherent limitations of voice recognition software.
Discharge Plan
Departure
Patient Disposition: Home (Routine Discharge)
Date of Disposition: 12/01/24
Time of Disposition: 15:22
Patient with high blood pressure during this ER visit?: Yes
Condition: Good
Discharge Problem:
Viral syndrome, Headache
Instructions: Headache, Adult (DC)
Prescriptions:
No Action
cyclobenzaprine 10 mg tablet
10 mg PO BID PRN (Reason: Muscle spasm) Qty: 14 0RF
diazepam [Valium] 5 mg tablet
5 mg PO TID PRN (Reason: muscle spasm) Qty: 10 0RF
lidocaine 5 % adhesive patch,medicated
1 patch topical DAILY Qty: 15 0RF
Rx Instructions:
remove after 12 hrs
Referrals:
Jennifer Hernández CRNP [Family Provider] -
Interventions
Interventions:
*Risk Screen - Suicide Last Done: 12/01/24 11:48
*General Assessment Last Done: 12/01/24 11:48
*Neglect/Abuse Screening Last Done: 12/01/24 11:48
*Nursing Disposition Last Done: 12/01/24 15:35
ED- Neurological Assessment Last Done: 12/01/24 12:25
Discharge Date and Time
Discharge Date/Time: 12/01/24 15:35
Print Language: ROMANIAN
[2024-12-01] MEDS: REGLAN 10 MG IV (13:22)
[2024-12-01] MEDS: BENADRYL 25 MG IV (13:22)
== END 2024-12-01 15:35 | disposition home or self-care (01) ==
LOC: EMR 11:44
PROVIDERS: Emergency Medicine; EMERGENCY PHYSICIAN Emergency Medicine; FAMILY PHYSICIAN Nurse Practitioner
DX: B34.9 Viral infection, unspecified (principal); R51.9 Headache, unspecified; J45.909 Unspecified asthma, uncomplicated; Z11.52 Encounter for screening for COVID-19
CPT/HCPCS: 99284; 96374; 96375; 70450; 87502; 87811; 93005

== ENCOUNTER 2025-04-06 17:05 | Emergency (ER) | payer OTHER, SELFPAY ==
[2025-04-06 17:08] VITALS: BP 156/102
--- NOTE | 2025-04-06 18:52 | ED.GENMED ---
History of Present Illness
General
Chief Complaint: Anxiety
Time Seen by Provider: 04/06/25 17:46
History of Present Illness
History of Present Illness:
29-year-old female history of asthma presenting with neck sensation. Patient states that she has had nasal congestion and rhinorrhea for the past 2 days, states she has not been eating much. Patient states that after going to the grocery store and
walking around for the first time in 2 days she started having fullness in her neck feeling like 'my glands were swollen'. Patient states that she started getting nervous, her mouth when dry, chest tightness and shortness of breath. Patient
contributes symptoms to her anxiety. Patient states that symptoms have since resolved. Patient denies numbness, weakness, tingling, headache or chest pain. Patient denies fever or chills. Patient denies difficulty swallowing or drooling.
Past History
Past History
ED Past Medical History: Asthma
Social History
Tobacco: Non-smoker
Alcohol: Occasional
Drug: None
Personal:
Living: with family
Employment: Employed
Phy Exam
Physical Exam
Physical Exam:
General: Alert, no acute distress
Head: NCAT
Eyes: clear conjunctiva
ENT: Moist mucous membranes. Posterior oropharynx clear with no erythema or exudates. Uvula midline. No swelling. No drooling. Tolerating secretions. TMS clear bilaterally with erythema or effusion. Ear canals clear bilaterally with no erythema.
Neck: supple. no bruit. no tenderness to palpation. no swelling
Cardiac: regular rate and rhythm, no murmur
Lungs: clear to auscultation bilaterally. No wheezes, rales, or rhonchi. Speaking full unlabored sentences. No respiratory distress.
Abdomen: soft, nondistended nontender. No rebound or guarding.
MSK: no lower extremity edema bilaterally. No deformity
Skin: warm, dry
Neuro: Alert and oriented x3. no focal deficits
Course
Orders/Labs/Results
Orders:
Orders
04/06/25 17:10
ECG [Electrocardiogram (*1)] Urgent
Reason for Study: Chest Pain
EKG- Treatment ONCE
Vital Signs
Initial and Last Documented VS:
Initial Vital Signs
Temp Pulse Resp BP Pulse Ox
98.0 F 85 20 156/102 98
04/06/25 17:08 04/06/25 17:08 04/06/25 17:08 04/06/25 17:08 04/06/25 17:08
Last Documented Vital Signs
Temp Pulse Resp BP Pulse Ox
98.0 F 85 20 156/102 98
04/06/25 17:08 04/06/25 17:08 04/06/25 17:08 04/06/25 17:08 04/06/25 18:55
MDM/Problems Addressed
MDM/Problems Addressed:
29yoF presenting with feeling of fullness in her neck and then she said she got nervous and started having chest tightness and shortness of breath which has since resolved. Vitals stable. EKG unremarkable. Lungs clear to auscultation. no bruit.
Posterior oropharynx clear with no erythema or swelling. No neck swelling. Speaking full unlabored sentences in no acute respiratory distress. Offered labs, patient declines. Low suspicion for pneumothorax given lungs clear in all bonilla, symptoms
resolved. Low suspicion for ACS given no hx, no risk factors, described as tightness when she was anxious about her neck, EKG unremarkable. Low suspicion for asthma exacerbation given lungs clear to ausculatation, no respiratory distress, patient
states symptoms resovled spontaneously. Suspect viral syndrome, anxiety. Stable for discharge with PCP follow up
*Pulse Oximetry
SaO2: 98
Oxygen Mode of Delivery: Room air
Patient hypoxic: no
*Critical Care Note
Total Time (30-74mins, 75-104mins- exclusive of procedures): Not Applicable
ED Attending Note
-
Portions of this chart may have been created with voice recognition software.� Occasional wrong word or��sound alike� substitutions may have occurred due to the inherent limitations of voice recognition software.
Discharge Plan
Departure
Patient Disposition: Home (Routine Discharge)
Date of Disposition: 04/06/25
Time of Disposition: 19:03
Patient with high blood pressure during this ER visit?: Yes
Discharge Problem:
Anxiety
Instructions: Anxiety, Adult (DC), BLOOD PRESSURE
Prescriptions:
No Action
albuterol sulfate 90 mcg/actuation Hfa Aerosol Inhaler
2 puff INHALATION QID PRN (Reason: asthma)
Combivent Respimat 20-100 mcg/actuation Mist
1 puff INHALATION QID PRN (Reason: asthma)
Referrals:
Jennifer Hernández CRNP [Family Provider, General]
Activity Restrictions/Additional Instructions:
Take nasal decongestants as needed
Follow up with primary care doctor in 1-2 days
Return to the emergency department for fever or new/worsening symptoms
Interventions
Interventions:
*General Assessment Last Done: 04/06/25 17:08
Discharge Date and Time
Print Language: DANISH
== END 2025-04-06 20:31 | disposition home or self-care (01) ==
LOC: EMR 17:05
PROVIDERS: EMERGENCY PHYSICIAN Emergency Medicine; FAMILY PHYSICIAN Nurse Practitioner
DX: F41.9 Anxiety disorder, unspecified (principal); J45.909 Unspecified asthma, uncomplicated
CPT/HCPCS: 99283; 93005

== ENCOUNTER 2025-04-22 08:22 | Emergency (ER) | payer OTHER, SELFPAY ==
[2025-04-22 08:25] VITALS: BP 149/95
--- NOTE | 2025-04-22 09:00 | ED.GENMED ---
History of Present Illness
General
Chief Complaint: Back Pain
Source: patient
Time Seen by Provider: 04/22/25 08:32
History of Present Illness
History of Present Illness:
21-year-old female presents to the emergency room complaining of back pain. Patient states she woke up experiencing the pain which is located in her thoracic back. It is worse with movement and taking a breath. She does not feel particular short
of breath. No recent fever or chills though she was diagnosed with a URI 2 weeks ago. She continues to have some nasal congestion' mucus production'. No recent travel. No recent hospitalizations.
Past History
Past History
ED Past Medical History: Asthma
Social History
Tobacco: Non-smoker
Alcohol: Occasional
Drug: None
Personal:
Living: with family
Employment: Employed
Phy Exam
Physical Exam
Physical Exam:
General: Awake, Alert, Oriented X3. No acute distress.
Vitals: unremarkable
Head: Atraumatic
Eyes: Pupils equal, EOMI
Throat: Airway intact, no exudates
Neck: Trachea midline
Lungs: Clear and equal b/l
Heart: Regular rate, no murmurs
Abd: Soft, Nontender, No pulsatile mass
Back: Tenderness palpation thoracic paraspinal musculature
Neuro: No focal weakness
Skin: Warm, dry, no rash
Extremities: pulses equal b/l, no edema
Course
Orders/Labs/Results
Orders:
Orders
04/22/25 08:58
Acetaminophen [Tylenol] 1,000 mg PO NOW STA
04/22/25 08:59
CR Chest - 2 Views Urgent
Comment:
Reason For Exam: thoracic back pain
04/22/25 09:09
Basic Metabolic Panel Urgent
Complete Blood Count/With Diff Urgent
D-Dimer Urgent
HCG, Serum Qualitative Screen Urgent
Comment: ADD ON
04/22/25 09:51
Add On- LAB Urgent
Tests Added?: qual hcg
CT Chest PE Study Urgent
Comment:
Reason For Exam: pleuritic chest pain
04/22/25 11:15
Cyclobenzaprine HCl [Flexeril] 10 mg PO NOW STA
Abnormal Lab Results
04/22/25
09:09
Hgb 11.7 L g/dL
(12.0-16.0)
Hct 35.4 L %
(37.0-47.0)
MCV 79.4 L fL
(81.0-99.0)
MCH 26.2 L pg
(27.0-31.0)
RDW 14.6 H %
(11.5-14.5)
MPV 12.1 H fL
(7.4-10.4)
Absolute Neuts (auto) 7.7 H 10^3/uL
(1.4-6.5)
Lymphocytes % 16.0 L %
(20.5-51.1)
D-Dimer 0.58 H ug/mlFEU
(0.00-0.50)
Glucose 113 H mg/dl
(70-99)
04/22/25 09:09
04/22/25 09:09
Vital Signs
Initial and Last Documented VS:
Initial Vital Signs
Temp Pulse Resp BP Pulse Ox
98.8 F 89 20 149/95 98
04/22/25 08:25 04/22/25 08:25 04/22/25 08:25 04/22/25 08:25 04/22/25 08:25
Last Documented Vital Signs
Temp Pulse Resp BP Pulse Ox
98.8 F 81 16 127/81 98
04/22/25 08:25 04/22/25 11:23 04/22/25 11:23 04/22/25 11:21 04/22/25 11:21
MDM/Problems Addressed
Differential Diagnosis Includes:
Muscle strain, pneumothorax, PE
MDM/Problems Addressed:
Patient presents complaining of pain in thoracic back. Clinically the most likely diagnosis seems to be a thoracic muscle strain. CT of the chest shows no PE or any other acute abnormality. Labs are otherwise unremarkable. Patient stable for
discharge with treatment for muscle strain/spasm
*Radiology
Radiology exam reviewed: radiology read reviewed
*Pulse Oximetry
SaO2: 98
Oxygen Mode of Delivery: Room air
Patient hypoxic: no
*Critical Care Note
Total Time (30-74mins, 75-104mins- exclusive of procedures): Not Applicable
ED Attending Note
-
Portions of this chart may have been created with voice recognition software.� Occasional wrong word or��sound alike� substitutions may have occurred due to the inherent limitations of voice recognition software.
Discharge Plan
Departure
Patient Disposition: Home (Routine Discharge)
Date of Disposition: 04/22/25
Time of Disposition: 11:14
Patient with high blood pressure during this ER visit?: Yes
Condition: Good
Discharge Problem:
Acute thoracic myofascial strain
Instructions: Upper Back Pain (DC), BLOOD PRESSURE
Prescriptions:
New
metaxalone 800 mg tablet
800 mg PO TID PRN (Reason: muscle pain) Qty: 20 0RF
No Action
albuterol sulfate 90 mcg/actuation Hfa Aerosol Inhaler
2 puff INHALATION QID PRN (Reason: asthma)
Combivent Respimat 20-100 mcg/actuation Mist
1 puff INHALATION QID PRN (Reason: asthma)
Referrals:
Jennifer Hernández CRNP [Family Provider, General]
Interventions
Interventions:
*Risk Screen - Suicide Last Done: 04/22/25 08:30
*General Assessment Last Done: 04/22/25 08:47
*Neglect/Abuse Screening Last Done: 04/22/25 08:30
*ED- Fall Risk Assessment Last Done: 04/22/25 08:47
*ED COVID-19 Vaccine History Last Done: 04/22/25 08:47
*Nursing Disposition Last Done: 04/22/25 11:25
ED-Musculoskeletal Assessment Last Done: 04/22/25 08:47
Discharge Date and Time
Discharge Date/Time: 04/22/25 11:30
Print Language: ROMANIAN
[2025-04-22] MEDS: TYLENOL 1000 MG PO (09:11)
[2025-04-22 09:16] LABS: Hematocrit 35.4 % (37.0-47.0); Hemoglobin 11.7 g/dL (12.0-16.0); Mean Corp Hgb Conc. 33.1 g/dL (33.0-37.0); Mean Corpuscular Volume 79.4 fL (81.0-99.0); Nucleated Red Blood Cells % 0 %; Platelet Count 184 10^3/uL (130-400); Red Cell Dist. Width 14.6 % (11.5-14.5)
[2025-04-22 09:33] LABS: Blood Urea Nitrogen 13 mg/dl (7-17); Calcium 8.4 mg/dl (8.4-10.2); Carbon Dioxide 24 mmol/L (22-30); Chloride 106 mmol/L (98-107); D-Dimer 0.58 ug/mlFEU (0.00-0.50); Glucose 113 mg/dl (70-99); Potassium 4.2 mmol/L (3.5-5.1); Sodium 136 mmol/L (135-145); eGFR > 60.00
[2025-04-22 10:15] LABS: HCG, Serum Qualitative Screen Negative
[2025-04-22 11:21] VITALS: BP 127/81
== END 2025-04-22 11:30 | disposition home or self-care (01) ==
LOC: EMR 08:22
PROVIDERS: EMERGENCY PHYSICIAN Emergency Medicine; FAMILY PHYSICIAN Nurse Practitioner
DX: S29.012A Strain of muscle and tendon of back wall of thorax, initial encounter (principal); J45.909 Unspecified asthma, uncomplicated; X58.XXXA Exposure to other specified factors, initial encounter
CPT/HCPCS: 99284; 71046; 71275; 80048; 84703; 85025; 85379; Q9967

== ENCOUNTER 2025-05-06 11:15 | Emergency (ER) | payer OTHER, SELFPAY ==
[2025-05-06 11:22] VITALS: BP 159/100
[2025-05-06 11:43] LABS: Hematocrit 35.7 % (37.0-47.0); Hemoglobin 11.6 g/dL (12.0-16.0); Mean Corp Hgb Conc. 32.5 g/dL (33.0-37.0); Mean Corpuscular Volume 79.7 fL (81.0-99.0); Nucleated Red Blood Cells % 0 %; Platelet Count 181 10^3/uL (130-400); Red Cell Dist. Width 14.7 % (11.5-14.5)
[2025-05-06 12:08] LABS: ALT (SGPT) 20 U/L (0-35); AST (SGOT) 19 U/L (14-36); Albumin 4.5 g/dl (3.5-5.0); Alkaline Phosphatase 62 U/L (38-126); Blood Urea Nitrogen 9 mg/dl (7-17); Calcium 8.6 mg/dl (8.4-10.2); Carbon Dioxide 25 mmol/L (22-30); Chloride 106 mmol/L (98-107); Glucose 106 mg/dl (70-99); Potassium 4.3 mmol/L (3.5-5.1); Sodium 139 mmol/L (135-145); Total Protein 7.6 g/dl (6.3-8.2); eGFR > 60.00
--- NOTE | 2025-05-06 12:24 | ED.GENMED ---
History of Present Illness
General
Chief Complaint: Visual Problem
Time Seen by Provider: 05/06/25 12:24
History of Present Illness
History of Present Illness:
FOCUSED PAST MEDICAL HISTORY
- IBS, anxiety, asthma
REVIEW OF OLD RECORDS
- I reviewed records, the patient had a CAT scan of the brain in November 2024 that was unremarkable
Note:
CHIEF COMPLAINT(S)
Blurry vision and back pain.
HISTORY OF PRESENT ILLNESS
The patient is a 29-year-old female who presented with sudden onset of blurry vision while using her phone at home. She described the visual disturbance as seeing 'blind spots with rainbow colors' in both eyes. The patient had attempted to test each
eye independently and experienced blurriness in both. This incident occurred alongside a severe headache the previous night. The patient denied any history of migraines or ocular migraines, noting this was her first experience with such symptoms. No
associated photophobia was present as the patient was only using their phone in a dimly lit environment.
In addition to visual symptoms, the patient reported experiencing a sharp neck pain, which was relieved by touch. She also mentioned back pain but was uncertain if it was connected to the visual changes. She reported no double vision, although
things appeared unclear.
The patient is currently menstruating, which may explain her hemoglobin levels being mildly low, noted to be in the 11s.
The patient had undergone a CT scan in November, which returned normal, and there was preference to avoid another scan due to radiation exposure unless symptoms recur or worsen. Her current blood work was essentially unremarkable apart from the
hemoglobin levels. Her visual acuity tested at 20/30 in both eyes and ocular motility appeared normal.
PAST MEDICAL AND SURIGICAL HISTORY
CT scan of brain in November with normal results.
REVIEW OF SYSTEMS
- Eye, Nose, and Throat: Blurry vision in both eyes, occasional back pain, sharp neck pain.
- Neurological: Severe headache with no history of migraines.
PHYSICAL EXAM
General: Alert, no acute distress. Appears comfortable
Skin: Warm, dry.
Head: Normocephalic, atraumatic.
Neck: Supple, trachea midline, as I palpate the area of concern in the right posterior neck, he reports improvement of pain
Eye Ears, Nose, Mouth, and Throat: Oral mucosa moist, 20/30 visual acuity in both eyes, normal ocular motility. No field cuts.
Cardiovascular: Normal peripheral perfusion, no edema.
Respiratory: Respirations are non-labored.
Gastrointestinal: Abdomen nondistended.
Back: Normal range of motion, normal alignment.
Musculoskeletal: Normal range of motion, normal strength.
Neurological: Alert and oriented to person, place, time, and situation, normal strength and coordination, no focal neurological deficit observed.
Psychiatric: Cooperative, appropriate mood & affect.
PROBLEM LIST
- Acute: Blurry vision, acute headache, sharp neck pain
- Chronic: Mild anemia related to menstruation
PLAN
- Ensure the patient receives contact information for ophthalmology follow-up if needed.
- Further vision exams to rule out any potential underlying conditions.
- Advise monitoring of symptoms and return if visual symptoms persist or worsen.
- Provide Dr. Contreras contact if no audio video mechanic is artificial insemination technician for potential follow-up consultation.
DIFFERENTIAL DIAGNOSIS
The Differential Diagnosis includes, in no particular order and is not limited to:
1. Migraine with visual aura
2. Tension headache
3. Ocular migraine
4. Multiple Sclerosis
5. Retinal detachment
6. Visual disturbances related to anemia
7. Horners Syndrome
8. Neurological causes of visual impairment
9. Optic neuritis
10. Stress-related visual symptoms
LABS
- White count normal, hemoglobin 11.6, chemistries unremarkable
UPDATE
-SUMMARY OF ENCOUNTER
The patient, a 29-year-old female, presented to the emergency department with complaints of sudden blurry vision and a severe headache. She experienced visual disturbances described as 'blind spots with rainbow colors' and a sharp neck pain relieved
by touch. Her examination revealed normocephalic, atraumatic head, 20/30 visual acuity in both eyes, and normal ocular motility. Due to a normal neurologic examination and no acute distress, discharge was considered appropriate. She was advised to
follow up with ophthalmology for further vision examinations to rule out underlying conditions.
ASSESSMENT
The patients presentation includes sudden blurry vision, headache, and mild anemia. The visual symptoms with headache could suggest a migraine with a visual aura or ocular migraine, though this was her first occurrence without a migraine history.
The mild anemia is consistent with her history of heavy menstruation.
PLAN
- Patient was provided contact information for ophthalmology to arrange a follow-up evaluation.
- Advised monitoring of symptoms and to return if visual symptoms persist or worsen.
INDEPENDENT REVIEW OF LABS AND INTERPRETATION OF TESTS
My independent review of the blood work indicates a mild anemia consistent with her heavy menstruation, with hemoglobin levels in the 11s.
PATIENT EDUCATION AND COUNSELING
The patient was informed about the importance of following up with an audio video mechanic to investigate her visual symptoms further and monitor the anemia due to heavy menstrual periods.
FOLLOW-UP INSTRUCTIONS
Patient was instructed to contact an audio video mechanic for a follow-up visit to further assess her vision. She should return to the emergency department or contact her healthcare provider if symptoms worsen or persist.
MEDICAL DECISION MAKING
1. Number and Complexity of Problems Addressed: Chronic conditions affecting care include mild anemia due to heavy menstruation. Differential diagnoses considered for her symptoms:
- Migraine with visual aura
- Tension headache
- Ocular migraine
- Multiple sclerosis
- Retinal detachment
- Visual disturbances related to anemia
- Horners syndrome
- Neurological causes of visual impairment
- Optic neuritis
- Stress-related visual symptoms
2. Data:
Category 1:
- Reviewed patients neurologic examination results showing normal findings.
- Lab results reviewed indicated mild anemia, consistent with a history of heavy menstrual periods.
3. Risk: Prescription medication was not considered necessary; patient discharged with advice for follow-up care.
DIAGNOSIS
1. Visual disturbance, unspecified (H53.9)
2. Headache (R51)
3. Mild anemia, unspecified (D64.9)
Past History
Past History
ED Past Medical History: Asthma
Social History
Tobacco: Non-smoker
Alcohol: Occasional
Drug: None
Personal:
Living: with family
Employment: Employed
Phy Exam
Physical Exam
Physical Exam:
See HPI
Course
Orders/Labs/Results
Orders:
Orders
05/06/25 11:33
Complete Blood Count/With Diff Urgent
Comprehensive Metabolic Panel Urgent
Abnormal Lab Results
05/06/25
11:33
Hgb 11.6 L g/dL
(12.0-16.0)
Hct 35.7 L %
(37.0-47.0)
MCV 79.7 L fL
(81.0-99.0)
MCH 25.9 L pg
(27.0-31.0)
MCHC 32.5 L g/dL
(33.0-37.0)
RDW 14.7 H %
(11.5-14.5)
MPV 11.0 H fL
(7.4-10.4)
Absolute Neuts (auto) 7.8 H 10^3/uL
(1.4-6.5)
Lymphocytes % 19.6 L %
(20.5-51.1)
Glucose 106 H mg/dl
(70-99)
05/06/25 11:33
05/06/25 11:33
Vital Signs
Initial and Last Documented VS:
Initial Vital Signs
Temp Pulse Resp BP Pulse Ox
36.8 C 77 18 159/100 100
05/06/25 11:22 05/06/25 11:22 05/06/25 11:22 05/06/25 11:22 05/06/25 11:22
Last Documented Vital Signs
Temp Pulse Resp BP Pulse Ox
36.8 C 77 18 159/100 100
05/06/25 11:22 05/06/25 11:22 05/06/25 11:22 05/06/25 11:22 05/06/25 12:25
*Pulse Oximetry
SaO2: 100
Patient hypoxic: no
*Critical Care Note
Total Time (30-74mins, 75-104mins- exclusive of procedures): Not Applicable
ED Attending Note
-
Portions of this chart may have been created with voice recognition software.� Occasional wrong word or��sound alike� substitutions may have occurred due to the inherent limitations of voice recognition software.
Discharge Plan
Departure
Patient Disposition: Home (Routine Discharge)
Date of Disposition: 05/06/25
Time of Disposition: 12:34
Patient with high blood pressure during this ER visit?: Yes
Discharge Problem:
Changes in vision
Prescriptions:
No Action
albuterol sulfate 90 mcg/actuation Hfa Aerosol Inhaler
2 puff INHALATION QID PRN (Reason: asthma)
Combivent Respimat 20-100 mcg/actuation Mist
1 puff INHALATION QID PRN (Reason: asthma)
metaxalone 800 mg tablet
800 mg PO TID PRN (Reason: muscle pain) Qty: 20 0RF
Referrals:
Vern Rosen MD [Active, Ophthalmology]
Activity Restrictions/Additional Instructions:
Your hemoglobin is slightly low at 11.6 however when it was checked in March it was 11.7�no significant change. You had a CAT scan of your brain earlier this year that was normal. I have given you the contact information for a local
audio video mechanic, Dr. Rosen, that you could follow-up with.
Interventions
Interventions:
*Risk Screen - Suicide Last Done: 05/06/25 11:25
*Neglect/Abuse Screening Last Done: 05/06/25 11:25
Discharge Date and Time
Print Language: MOZAMBICAN
== END 2025-05-06 13:06 | disposition home or self-care (01) ==
LOC: EMR 11:15
PROVIDERS: Student in an Organized Health Care Education/Training Program; EMERGENCY PHYSICIAN Emergency Medicine; FAMILY PHYSICIAN Nurse Practitioner
DX: H53.8 Other visual disturbances (principal); M54.9 Dorsalgia, unspecified; D64.9 Anemia, unspecified; J45.909 Unspecified asthma, uncomplicated; M54.2 Cervicalgia
CPT/HCPCS: 99283; 80053; 85025

== ENCOUNTER 2025-06-17 13:43 | Emergency (ER) | payer OTHER, SELFPAY ==
[2025-06-17 13:47] VITALS: BP 130/93
--- NOTE | 2025-06-17 15:51 | ED.GENMED ---
History of Present Illness
<Hina Dewitt PA-C - Last Filed: 06/17/25 17:04>
General
Chief Complaint: Back Pain
Source: patient
Exam Limitations: none
Time Seen by Provider: 06/17/25 15:38
History of Present Illness
History of Present Illness:
29yoF with a history of asthma and obesity presenting for evaluation of low back pain. Patient reports a tightness in her right lower back for the past 3 days. No trauma or inciting incident. Pain is worse with movement, specifically if she bends
over. She tried stretches at home without any relief. She has not been taking anything [id number]. She had some cramping in her lower abdomen earlier and is not sure if she has a UTI. She had some numbness in her right leg while in bed
last night which has resolved. She is otherwise asymptomatic and denies any fevers, difficulty urinating, incontinence, weakness. No prior history of back surgeries, malignancy, or IV drug use.
Past History
<Hina Dewitt PA-C - Last Filed: 06/17/25 17:04>
Past History
ED Past Medical History: Asthma
Social History
Tobacco: Non-smoker
Alcohol: Occasional
Drug: None
Personal:
Living: with family
Employment: Employed
Phy Exam
<Hina Dewitt PA-C - Last Filed: 06/17/25 17:04>
General Physical Exam
General Presentation: well appearing and no apparent distress
General age: appears stated age
General Skin: warm and dry
General Habitus: normal
General Mental: alert
ENT Exam
ENT Exam: normocephalic
Cardiovascular Exam
Cardiovascular Exam: normal peripheral pulses (2+ DP pulses bilaterally)
Pulmonary Exam
Pulmonary Exam: no respiratory distress
Gastrointestinal Exam
Gastrointestinal Exam: non tender, soft, non distended and no cva tenderness
Neurological Exam
Neurological Exam: alert and no motor deficits (5/5 strength in bilateral lower extremities)
Musculoskeletal Exam
Musculoskeletal Exam: other (+Tenderness to R paraspinal musculature in lumbar region. No midline spinous process tenderness. No skin changes.)
Skin Exam
Skin Exam: normal color and warm/dry
Psychiatric Exam
Psychiatric Exam: normal mood/affect
Course
<Hina Dewitt PA-C - Last Filed: 06/17/25 17:04>
Orders/Labs/Results
Orders:
Orders
06/17/25 15:51
Test Result ONCE
06/17/25 15:55
Beta Hcg Urine Qualitative Screen [HCG, Urine Qualitative Screen] Urgent
Date Specimen was Collected: 06/17/25
Time Specimen was Collected: 15:54
Urinalysis Reflex To Culture Urgent
Date Specimen was Collected: 06/17/25
Time Specimen was Collected: 15:54
Urine Microscopic Reflex Cult Urgent
Urine Culture Urgent
MECHELLE Source: U
Specimen Description:
Date Specimen was Collected: 06/17/25
Time Specimen was Collected: 15:54
06/17/25 16:53
Lidocaine [Lidocaine 4% Patch] 1 patch TOPICAL ONCE ONE
Apply Lidocaine patch(s) to:: R lower back
Abnormal Lab Results
06/17/25
15:55
Leukocyte Esterase Rfl 1+ A
(Negative)
Urine Bacteria (Reflex) Few A
(Negative)
Urine Albumin (Reflex) 1+ A
(Neg - Trace)
Vital Signs
Initial and Last Documented VS:
Initial Vital Signs
Temp Pulse Resp BP Pulse Ox
36.8 C 94 16 130/93 98
06/17/25 13:47 06/17/25 13:47 06/17/25 13:47 06/17/25 13:47 06/17/25 13:47
Last Documented Vital Signs
Temp Pulse Resp BP Pulse Ox
36.8 C 85 18 138/92 99
06/17/25 13:47 06/17/25 17:55 06/17/25 17:55 06/17/25 17:55 06/17/25 17:55
<Joanna Berrios PA-C - Last Filed: 06/20/25 08:52>
Orders/Labs/Results
Orders:
Orders
06/17/25 15:51
Test Result ONCE
06/17/25 15:55
Beta Hcg Urine Qualitative Screen [HCG, Urine Qualitative Screen] Urgent
Date Specimen was Collected: 06/17/25
Time Specimen was Collected: 15:54
Urinalysis Reflex To Culture Urgent
Date Specimen was Collected: 06/17/25
Time Specimen was Collected: 15:54
Urine Microscopic Reflex Cult Urgent
Urine Culture Urgent
MECHELLE Source: U
Specimen Description:
Date Specimen was Collected: 06/17/25
Time Specimen was Collected: 15:54
06/17/25 16:53
Lidocaine [Lidocaine 4% Patch] 1 patch TOPICAL ONCE ONE
Apply Lidocaine patch(s) to:: R lower back
Abnormal Lab Results
06/17/25
15:55
Leukocyte Esterase Rfl 1+ A
(Negative)
Urine Bacteria (Reflex) Few A
(Negative)
Urine Albumin (Reflex) 1+ A
(Neg - Trace)
Vital Signs
Initial and Last Documented VS:
Initial Vital Signs
Temp Pulse Resp BP Pulse Ox
36.8 C 94 16 130/93 98
06/17/25 13:47 06/17/25 13:47 06/17/25 13:47 06/17/25 13:47 06/17/25 13:47
Last Documented Vital Signs
Temp Pulse Resp BP Pulse Ox
36.8 C 85 18 138/92 99
06/17/25 13:47 06/17/25 17:55 06/17/25 17:55 06/17/25 17:55 06/17/25 17:55
<Hina Dewitt PA-C - Last Filed: 06/17/25 17:04>
MDM/Problems Addressed
Differential Diagnosis Includes:
29yoF here with atraumatic R lower back pain x 3 days that is worse with movement. No red flags in history including no fevers, saddle anesthesia, incontinence. VSS. There is reproducible tenderness on exam. Lower extremities are neurovascularly
intact. Differential diagnosis includes: muscular strain/spasm, UTI, doubt pyelonephritis
UA obtained and no overt signs of infection noted. No indication for lumbar spine imaging. Presentation consistent with muscular pain. Patient unable to take NSAIDs due to allergies. She is advised to take Tylenol as needed and use lidocaine
patches. Prescription provided for Robaxin. She is advised to follow-up with her PCP and orthopedics. ED return precautions reviewed and she was discharged in stable condition.
<Hina Dewitt PA-C - Last Filed: 06/17/25 17:04>
*Pulse Oximetry
SaO2: 98
Oxygen Mode of Delivery: Room air
Patient hypoxic: no
*Critical Care Note
Total Time (30-74mins, 75-104mins- exclusive of procedures): Not Applicable
<Joanna Berrios PA-C - Last Filed: 06/20/25 08:52>
Update Note
Update Note:
06/20/2025 0851 AM
Urine grew out E. coli. Patient called, she is still having some urinary symptoms and some itching. She got a dose of Diflucan and was on amoxicillin for recent throat infection. But she still having urinary symptoms. Will cover with the
additional prescription since the E. coli was resistant to amoxicillin. Cefdinir twice a day for 7 days and additional dose of Diflucan. Patient given return precautions
ED Attending Note
<Hina Dewitt PA-C - Last Filed: 06/17/25 17:04>
-
Portions of this chart may have been created with voice recognition software.� Occasional wrong word or��sound alike� substitutions may have occurred due to the inherent limitations of voice recognition software.
Discharge Plan
Departure
Patient Disposition: Home (Routine Discharge)
Date of Disposition: 06/17/25
Time of Disposition: 16:53
Patient with high blood pressure during this ER visit?: No
Discharge Problem:
Acute right-sided low back pain
Instructions: Low Back Pain (DC)
Prescriptions:
New
methocarbamol 750 mg tablet
750 mg PO TID PRN (Reason: muscle spasms) Qty: 20 0RF
cefdinir 300 mg capsule
300 mg PO Q12H Qty: 14 0RF
fluconazole 150 mg tablet
150 mg PO ONCE Qty: 1 0RF
No Action
albuterol sulfate 90 mcg/actuation Hfa Aerosol Inhaler
2 puff INHALATION QID PRN (Reason: asthma)
Combivent Respimat 20-100 mcg/actuation Mist
1 puff INHALATION QID PRN (Reason: asthma)
metaxalone 800 mg tablet
800 mg PO TID PRN (Reason: muscle pain) Qty: 20 0RF
Referrals:
Nitesh Betts MD [Active, Orthopedics]
Jennifer Hernández CRNP [Family Provider, General]
Activity Restrictions/Additional Instructions:
Take Tylenol 650mg every 6 hours as needed for pain. Use lidocaine patches daily (12 hours on, 12 hours off). Take Robaxin (muscle relaxer) as needed for spasms.
Please follow-up with your family doctor and orthopedics. Return to the ER with any new or worsening symptoms.
Interventions
Interventions:
*Risk Screen - Suicide Last Done: 06/17/25 13:47
*Neglect/Abuse Screening Last Done: 06/17/25 13:47
*Nursing Disposition Last Done: 06/17/25 17:56
ED-Musculoskeletal Assessment Last Done: 06/17/25 17:55
Discharge Date and Time
Discharge Date/Time: 06/17/25 17:57
Print Language: NEPALESE
[2025-06-17 16:14] LABS: Urine Character Clear (Clear)
[2025-06-17 16:17] LABS: HCG, Urine Qualitative Screen Negative
[2025-06-17 17:04] LABS: Urine Red Blood Cell 0-2 /HPF (0-2); Urine Squamous Cell >30 /LPF (Few); Urine White Cell 0-2 /HPF (0-5)
[2025-06-17] MEDS: LIDOCAINE 4% PATCH 1 PATCH TOPICAL (17:10)
[2025-06-17 17:55] VITALS: BP 138/92
== END 2025-06-17 17:57 | disposition home or self-care (01) ==
LOC: EMR 13:43
PROVIDERS: Physician Assistant; EMERGENCY PHYSICIAN Emergency Medicine; FAMILY PHYSICIAN Nurse Practitioner
DX: M54.50 Low back pain, unspecified (principal); J45.909 Unspecified asthma, uncomplicated
CPT/HCPCS: 99283; 81003; 81015; 81025; 87077; 87086; 87186

== ENCOUNTER 2025-06-30 13:02 | Emergency (ER) | payer OTHER, SELFPAY ==
[2025-06-30 13:04] VITALS: BP 147/90
--- NOTE | 2025-06-30 14:23 | ED.GENMED ---
History of Present Illness
General
Chief Complaint: Chest Problem
Source: patient
Exam Limitations: none
Time Seen by Provider: 06/30/25 13:59
Nursing documentation reviewed up to this point in time: agreed with
History of Present Illness
History of Present Illness:
Patient is a 29-year-old female with past medical history of asthma, anxiety, previous cholecystectomy, who presents to the emergency department from work for evaluation of chest pain. Patient reports that in early April she was having URI
symptoms. She reports that she went to an urgent care and they started her on amoxicillin. Patient reports that she took it for a few days and then noticed that she was having left-sided chest pain. Patient decided to discontinue the amoxicillin
prior to completing the course secondary to her symptoms. She reports that her chest pain seemed to resolve. She states that yesterday she noticed that she was again developing left-sided throat pain. Patient called her primary care provider and
explained her symptoms although they did not actually evaluate her in their office. They prescribed her a course of amoxicillin which she started taking yesterday. Patient reports that she started to notice chest pain yesterday and then again
today while at work. 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 Patient reports the pain is on the left side. She states that it is
constant. She states that it radiates to her left shoulder at times. Patient denies any radiation into her back, jaw, neck. Patient denies that anything seems to make it worse or better. Patient denies any shortness of breath, diaphoresis,
nausea, vomiting. Patient denies any history of cardiac disease. Patient denies any recent lower extremity edema, exogenous hormone use, personal or family history of VTE.
Past History
Past History
ED Past Medical History: Asthma and Psychiatric (Anxiety)
ED Past Surgical History: Cholecystectomy
Social History
Tobacco: Non-smoker
Alcohol: Occasional
Drug: None
Personal:
Living: with family
Employment: Employed
Review of Systems
Review of Systems
Allergies reviewed?: Yes
All Other Systems: Not applicable
Constitutional: Reports no symptoms; Denies fever
EENT: Reports sore throat; Denies runny nose
Respiratory: Reports no symptoms; Denies cough or trouble breathing
Cardiac: Reports chest pain; Denies diaphoresis
ABD/GI: Reports no symptoms
: Reports no symptoms
Musculoskeletal: Reports no symptoms
Skin: Reports no symptoms
Neurological: Reports no symptoms
Endocrine: Reports no symptoms
Hematologic/Lymphatic: Reports no symptoms
Psychiatric: Reports no symptoms
Phy Exam
General Physical Exam
General Presentation: well appearing and no apparent distress
General Skin: warm and dry
General Habitus: normal
General Mental: alert
General Hydration: appears well hydrated
ENT Exam
ENT Exam: EOMI, pharynx normal, neck supple, normocephalic and other (slight tonsillar edema on the left in comparison to the right, no uvula shift, tolerating oral secretions without difficulty, no trismus)
Eye Exam
Eye Exam: PERRL, cornea clear and conjunctiva normal
Cardiovascular Exam
Cardiovascular Exam: regular rate/rhythm, no edema, no murmur and normal peripheral pulses
Pulmonary Exam
Pulmonary Exam: lungs clear, no respiratory distress, no rales, no crackles, no rhonchi, no stridor, no wheezing and no cough
Neurological Exam
Neurological Exam: alert, oriented x3, no motor deficits and speech normal
Musculoskeletal Exam
Musculoskeletal Exam: full ROM, no edema and other ((+) reproducible ttp over the left anterior chest wall)
Skin Exam
Skin Exam: normal color, warm/dry, no rash and no petechia
Psychiatric Exam
Psychiatric Exam: normal mood/affect
Course
Orders/Labs/Results
Orders:
Orders
06/30/25 13:04
Electrocardiogram (*1) Urgent
Reason for Study: Chest Pain
EKG- Treatment ONCE
06/30/25 14:22
CR Chest - 2 Views Urgent
Comment:
Reason For Exam: left sided chest pain
06/30/25 14:27
Throat Culture, Comprehensive Urgent
MECHELLE Source: Throat/Pharynx
Specimen Description:
Date Specimen was Collected: 06/30/25
Time Specimen was Collected: 14:
Vital Signs
Initial and Last Documented VS:
Initial Vital Signs
Temp Pulse Resp BP Pulse Ox
98.2 F 80 16 147/90 99
06/30/25 13:04 06/30/25 13:04 06/30/25 13:04 06/30/25 13:04 06/30/25 13:04
Last Documented Vital Signs
Temp Pulse Resp BP Pulse Ox
98.3 F 80 16 147/90 99
06/30/25 15:41 06/30/25 13:04 06/30/25 13:04 06/30/25 13:04 06/30/25 14:24
*Pulse Oximetry
SaO2: 99
Oxygen Mode of Delivery: Room air
Patient hypoxic: no
*Critical Care Note
Total Time (30-74mins, 75-104mins- exclusive of procedures): Not Applicable
Update Note
Update Note:
Patient is a 29-year-old female who presents to the emergency department for evaluation of chest pain that started after taking amoxicillin for a URI. Patient reports that she tried taking amoxicillin last month for similar URI and also developed
chest pain at that time. Patient contacted her PCP who was concerned for allergic reaction and referred her to the emergency department for further evaluation. On arrival, patient is mildly hypertensive, afebrile. On examination, the patient is
very well-appearing, she is acute distress, she has no evidence of anaphylaxis on her physical examination, she has a normal cardiopulmonary exam, she has no lower extremity edema. EKG was performed and demonstrates nonspecific T wave flattening
without acute ischemic changes or evidence of dysrhythmia. Will obtain chest x-ray given her pain. Will send throat culture given the fact that the patient has throat pain and is on antibiotics that she would like to stop. Patient is driving
today therefore does not want to take Benadryl or other antihistamine, no indication for emergent administration at this time.
Chest x-ray demonstrates no acute disease process. Throat culture is pending. Patient has remained stable for the entirety of her emergency department stay and I feel that she is safe for discharge home. Patient will stop the amoxicillin for now
given the fact that there is not overwhelming evidence for a bacterial infection at this time. She is aware that throat culture is pending and she will be contacted if if it is positive. At home, she was advised that she could take an
antihistamine to see if this helps improve her symptoms. However, I do not believe that the patient's chest pain is secondary to ACS, PE, or other life-threatening emergency. Patient was educated on strict return precautions, she expressed
understanding of the plan and agreed.
ED Attending Note
-
Portions of this chart may have been created with voice recognition software.� Occasional wrong word or��sound alike� substitutions may have occurred due to the inherent limitations of voice recognition software.
Discharge Plan
Departure
Patient Disposition: Home (Routine Discharge)
Date of Disposition: 06/30/25
Time of Disposition: 15:43
Patient with high blood pressure during this ER visit?: Yes
Condition: Good
Covid-19: Not Applicable
Discharge Problem:
Chest pain, Throat pain
Instructions: Sore throat in adults - ED (DC), Chest Pain PCP Follow Up
Prescriptions:
No Action
albuterol sulfate 90 mcg/actuation Hfa Aerosol Inhaler
2 puff INHALATION QID PRN (Reason: asthma)
Combivent Respimat 20-100 mcg/actuation Mist
1 puff INHALATION QID PRN (Reason: asthma)
metaxalone 800 mg tablet
800 mg PO TID PRN (Reason: muscle pain) Qty: 20 0RF
methocarbamol 750 mg tablet
750 mg PO TID PRN (Reason: muscle spasms) Qty: 20 0RF
cefdinir 300 mg capsule
300 mg PO Q12H Qty: 14 0RF
fluconazole 150 mg tablet
150 mg PO ONCE Qty: 1 0RF
Referrals:
Jennifer Hernández CRNP [Family Provider, General] - Follow up in 2-3 days
Activity Restrictions/Additional Instructions:
You were seen in the emergency department for evaluation of chest pain which started after staring an antibiotic. While you were in the emergency department your EKG and chest x-ray did not show a dangerous abnormality, we do not suspect that your
chest pain is coming from a problem with your heart. There is also no evidence of anaphylaxis or dangerous life-threatening allergic reaction. You could be having an adverse reaction to the amoxicillin. We recommend that you take a medication
such as Zyrtec or Windy to help with the possible adverse reaction. In the meantime, we also sent a throat culture. This would indicate whether the pain in your throat is coming from a bacteria and whether you require antibiotics. If so, your
doctor may want to change your antibiotic to something different. In the meantime, please try to drink plenty of fluids. You may take medication such as ibuprofen or Tylenol for pain. Please return to the emergency department if you develop lip
or tongue swelling, difficulty swallowing, shortness of breath or difficulty breathing, severe abdominal pain, persistent vomiting, or for any other worsening or concerning symptoms.
Interventions
Interventions:
*Risk Screen - Suicide Last Done: 06/30/25 13:04
*General Assessment Last Done: 06/30/25 15:54
*Neglect/Abuse Screening Last Done: 06/30/25 13:04
*ED COVID-19 Vaccine History Last Done: 06/30/25 14:59
*ED Influenza Vaccine History Last Done: 06/30/25 14:59
[facility] Risk Assessment Tool Last Done: 06/30/25 15:54
*Nursing Disposition Last Done: 06/30/25 15:54
ED- Cardiac Assessment Last Done: 06/30/25 14:59
ED- Pulmonary Assessment Last Done: 06/30/25 14:59
Discharge Date and Time
Discharge Date/Time: 06/30/25 15:55
Print Language: LIBYAN
== END 2025-06-30 15:55 | disposition home or self-care (01) ==
LOC: EMR 13:02
PROVIDERS: EMERGENCY PHYSICIAN Emergency Medicine; FAMILY PHYSICIAN Nurse Practitioner
DX: R07.9 Chest pain, unspecified (principal); R07.0 Pain in throat; R03.0 Elevated blood-pressure reading, without diagnosis of hypertension; J45.909 Unspecified asthma, uncomplicated; F41.9 Anxiety disorder, unspecified
CPT/HCPCS: 99284; 71046; 87070; 93005